=== PATIENT | female | born 1935 | race African-American/Black ===

== ENCOUNTER 2018-03-11 23:14 | Emergency (ER) | payer OTHER, BC ==
--- NOTE | 2018-03-11 23:51 | EDPHY ---
H & P Stated Complaint: ABDOMINAL PAIN X 2 WEEKS LAST TRAMADOL TONIGHT Time Seen by Provider: 03/11/18 23:31 HPI/ROS: Chief Complaint: Abdominal pain HPI: 83 year old woman who had a bladder tumor removed on February 01 in [facility]. She was seen here on the of this month with increasing pain and blood in her urine. At that time she has diagnosed with urinary tract infection. She had an ultrasound which showed asymmetrical bladder wall thickening. She completed a course of antibiotics. She has not followed up with Urology but has no appointment in [place] in 3 days. She says that she has been having daily lower abdominal pain since the surgery. She is taking a single tramadol for this with relief. She also has pain immediately after urination. This is not changed in several weeks. She took her last tramadol tonight. She is presenting tonight because she is concerned that she is going to continue have pain and she will not have medication prior to appointment [place]. She denies any fevers or chills. No urinary frequency. No nausea or vomiting or diarrhea. ROS: 10 point Review of Systems is negative except as noted in the HPI. Social History: No smoking, no alcohol, no recreational drug use Family History: non-contributory Physical Exam: Gen: Awake, Alert, No Distress HEENT: Nose: no rhinorrhea Eyes: PERRLA, EOMI Mouth: Moist mucosa Neck: Supple, no JVD Chest: nontender, lungs clear to auscultation Heart: S1, S2 normal, no murmur Abd: Soft, very mild suprapubic tenderness to palpation, no guarding Back: no CVA tenderness, no midline tenderness Ext: no edema, non-tender Skin: no rash Neuro: CN II-XII intact, Sensation grossly intact, Strength 5/5 in bilateral upper and lower extremities - Personal History Current Tetanus/Diphtheria Vaccine: Yes - Medical/Surgical History Hx Asthma: No Hx Chronic Respiratory Disease: No Hx Diabetes: No Hx Cardiac Disease: No Hx Renal Disease: No Hx Cirrhosis: No Hx Alcoholism: No Hx HIV/AIDS: No Hx Splenectomy or Spleen Trauma: No Other PMH: Hysterectomy. Tonsilectomy r/t sleep apnea. HTN. PCP [facility] In [place]. 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 SHINGLES - Social History Smoking Status: Never smoked Constitutional: Initial Vital Signs Temperature (C) 36.8 C 03/11/18 23:18 Heart Rate 92 03/11/18 23:18 Respiratory Rate 16 03/11/18 23:18 Blood Pressure 141/82 H 03/11/18 23:18 O2 Sat (%) 97 03/11/18 23:18 O2 Delivery Mode Room Air Allergies/Adverse Reactions: No Known Allergies Allergy (Verified 03/03/18 05:48) Home Medications: Medication Instructions Recorded Lisinopril 04/30/16 Cephalexin [Keflex] 500 mg PO Q6H #28 cap 03/03/18 Phenazopyridine HCl [Pyridium] 200 mg PO TID #15 tab 03/03/18 traMADol 50 mg 03/11/18 traMADol [Ultram 50 mg (*)] 50 mg PO Q4 PRN #10 tab 03/11/18 Medical Decision Making ED Course/Re-evaluation: Urinalysis noted. Possible deep infection but also shows positive contamination with 2+ epithelial cells. Her last urine culture was polymicrobial left skin. This has been sent for culture. I am going to hold off on treating at this time until she follows up with Urology. We have had a long discussion about further workup and evaluation for this. She actually has an appointment with a urologist in 2 days in [place]. She would prefer to wait for any further testing in follow-up there. Given that her symptoms have been unchanged for several weeks I think that this is reasonable. Will discharge with a prescription for pain medication with planned follow-up as scheduled. - Data Points Laboratory Results: 03/12/18 00:15 Urine Color YELLOW Urine Appearance MODERATELY TURBID Urine pH 5.0 (5.0-7.5) Ur Specific [place] 1.016 (1.002-1.030) Urine Protein NEGATIVE (NEGATIVE) Urine Ketones TRACE H (NEGATIVE) Urine Blood 2+ H (NEGATIVE) Urine Nitrate NEGATIVE (NEGATIVE) Urine Bilirubin NEGATIVE (NEGATIVE) Urine Urobilinogen NEGATIVE EU EU (0.2-1.0) Ur Leukocyte Esterase 2+ H (NEGATIVE) Urine RBC 50-182 /hpf H /hpf (0-3) Urine WBC 50-182 /hpf H /hpf (0-3) Ur Epithelial Cells 2+ /lpf H /lpf (NONE-1+) Urine Bacteria 1+ /hpf H /hpf (NONE SEEN) Urine Mucus TRACE /lpf /lpf (NONE-1+) Urine Glucose NEGATIVE (NEGATIVE) Departure - Departure Disposition: Home, Routine, Self-Care Clinical Impression: Dysuria, Abdominal pain Condition: Good Instructions: Dysuria (ED), Abdominal Pain (ED) Additional Instructions: Follow up with urology appointment as scheduled in 2 days. Return to the emergency department for increasing pain, fevers or chills, uncontrolled nausea vomiting, or any other concerns. Referrals: NONE *PRIMARY CARE P,. [Primary Care Provider] - As per Instructions Prescriptions: traMADol [Ultram 50 mg (*)] 50 mg PO Q4 PRN #10 tab PRN Reason: Pain, Severe
[2018-03-12 01:01] VITALS: BP 147/100
== END 2018-03-12 01:02 | disposition home or self-care (01) ==
DX: R10.9 Unspecified abdominal pain (principal); R30.0 Dysuria; Z87.440 Personal history of urinary (tract) infections

== ENCOUNTER 2018-03-25 07:37 | Observation (INO) | payer OTHER, BC ==
--- NOTE | 2018-03-25 08:20 | EDPHY ---
H & P Stated Complaint: right sided upper abdominal pain, shoulder pain, neck pain Time Seen by Provider: 03/25/18 08:02 HPI/ROS: Chief Complaint: Right-sided pain HPI: 83-year-old woman who is about 10 days status post trans urethral bladder tumor resection is presenting with intermittent right-sided pain from her neck down to her leg for the last week. Occasionally she has a stiff neck which then goes away. She also has some pain in her right back which is worse with deep breathing. She also has occasional right leg pain. No abdominal pain. Has had some constipation. She has been taking tramadol for postop pain but this is not affecting her right-sided pain. No central chest pain. No shortness of breath. No nausea or vomiting. No falls or injuries. No fevers or chills. No leg swelling. ROS: 10 systems were reviewed and were negative except those elements noted in the HPI. PMH: Bladder tumor Social History: No smoking, no alcohol, no recreational drug use Family History: non-contributory Physical Exam: Gen: Awake, Alert, No Distress HEENT: Nose: no rhinorrhea Eyes: PERRLA, EOMI Mouth: Moist mucosa Neck: Supple, no JVD Chest: nontender, lungs clear to auscultation Heart: S1, S2 normal, no murmur Abd: Soft, non-tender, no guarding Back: no CVA tenderness, no midline tenderness Ext: no edema, non-tender Skin: no rash Neuro: CN II-XII intact, Sensation grossly intact, Strength 5/5 in bilateral upper and lower extremities - Medical/Surgical History Hx Asthma: No Hx Chronic Respiratory Disease: No Hx Diabetes: No Hx Cardiac Disease: No Hx Renal Disease: No Hx Cirrhosis: No Hx Alcoholism: No Hx HIV/AIDS: No Hx Splenectomy or Spleen Trauma: No Other PMH: Hysterectomy. Tonsilectomy r/t sleep apnea. HTN. PCP Sp[facility]er In [place]. 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 SHINGLES - Social History Smoking Status: Never smoked Constitutional: Initial Vital Signs Temperature (C) 36.8 C 03/25/18 07:40 Heart Rate 92 03/25/18 07:40 Respiratory Rate 18 03/25/18 07:40 Blood Pressure 144/87 H 03/25/18 07:40 O2 Sat (%) 95 03/25/18 07:40 O2 Delivery Mode Room Air Allergies/Adverse Reactions: No Known Allergies Allergy (Verified 03/25/18 07:39) Home Medications: Medication Instructions Recorded Lisinopril 04/30/16 Cephalexin [Keflex] 500 mg PO Q6H #28 cap 03/03/18 Phenazopyridine HCl [Pyridium] 200 mg PO TID #15 tab 03/03/18 traMADol 50 mg 03/11/18 traMADol [Ultram 50 mg (*)] 50 mg PO Q4 PRN #10 tab 03/11/18 Medical Decision Making - Diagnostics Imaging Results: Imaging Impressions Chest/Thorax CTA 03/25/18 09:24 Impression: 1. Moderate acute thrombopulmonary embolic disease principally involving the right lower lobe. 2. No evidence of right heart strain. 3. No evidence of metastatic disease to the chest. 4. Moderate left hydronephrosis unchanged. Findings discussed with Emergency Department physician, Pranav Edmonds MD, on 03/25/2018 at 10:00 a.m. - Data Points Laboratory Results: Laboratory Results 03/25/18 08:25 03/25/18 08:25 03/25/18 03/25/18 03/25/18 08:35 08:25 08:25 WBC 9.04 10^3/uL 10^3/uL (3.80-9.50) RBC 4.23 10^6/uL 10^6/uL (4.18-5.33) Hgb 12.4 g/dL L g/dL (12.6-16.3) Hct 37.2 % L % (38.0-47.0) MCV 87.9 fL fL (81.5-99.8) MCH 29.3 pg pg (27.9-34.1) MCHC 33.3 g/dL g/dL (32.4-36.7) RDW 12.6 % % (11.5-15.2) Plt Count 191 10^3/uL 10^3/uL (150-400) MPV 10.4 fL fL (8.7-11.7) Neut % (Auto) 66.3 % % (39.3-74.2) Lymph % (Auto) 15.5 % % (15.0-45.0) Patrick % (Auto) 7.3 % % (4.5-13.0) Eos % (Auto) 10.2 % H % (0.6-7.6) Baso % (Auto) 0.4 % % (0.3-1.7) Nucleat RBC Rel Count 0.0 % % (0.0-0.2) Absolute Neuts (auto) 5.99 10^3/uL 10^3/uL (1.70-6.50) Absolute Lymphs (auto) 1.40 10^3/uL 10^3/uL (1.00-3.00) Absolute Monos (auto) 0.66 10^3/uL 10^3/uL (0.30-0.80) Absolute Eos (auto) 0.92 10^3/uL H 10^3/uL (0.03-0.40) Absolute Basos (auto) 0.04 10^3/uL 10^3/uL (0.02-0.10) Absolute Nucleated RBC 0.00 10^3/uL 10^3/uL (0-0.01) Immature Gran % 0.3 % % (0.0-1.1) Immature Gran # 0.03 10^3/uL 10^3/uL (0.00-0.10) D-Dimer 12.29 ug/mLFEU H ug/mLFEU (0.00-0.50) Sodium 138 mEq/L mEq/L (135-145) Potassium 4.0 mEq/L mEq/L (3.3-5.0) Chloride 105 mEq/L mEq/L (97-110) Carbon Dioxide 24 mEq/l mEq/l (22-31) Anion Gap 9 mEq/L mEq/L (8-16) BUN 14 mg/dL mg/dL (7-23) Creatinine 0.9 mg/dL mg/dL (0.6-1.0) Estimated GFR 60 Glucose 125 mg/dL H mg/dL (70-100) Calcium 9.6 mg/dL mg/dL (8.5-10.4) Urine Color Urine Appearance Urine pH Ur Specific [place] Urine Protein Urine Ketones Urine Blood Urine Nitrate Urine Bilirubin Urine Urobilinogen Ur Leukocyte Esterase Urine RBC Urine WBC Ur Epithelial Cells Urine Bacteria Urine Mucus Urine Glucose 03/25/18 08:02 WBC RBC Hgb Hct MCV MCH MCHC RDW Plt Count MPV Neut % (Auto) Lymph % (Auto) Patrick % (Auto) Eos % (Auto) Baso % (Auto) Nucleat RBC Rel Count Absolute Neuts (auto) Absolute Lymphs (auto) Absolute Monos (auto) Absolute Eos (auto) Absolute Basos (auto) Absolute Nucleated RBC Immature Gran % Immature Gran # D-Dimer Sodium Potassium Chloride Carbon Dioxide Anion Gap BUN Creatinine Estimated GFR Glucose Calcium Urine Color YELLOW Urine Appearance MODERATELY TURBID Urine pH 5.0 (5.0-7.5) Ur Specific [place] 1.012 (1.002-1.030) Urine Protein 2+ H (NEGATIVE) Urine Ketones TRACE H (NEGATIVE) Urine Blood 3+ H (NEGATIVE) Urine Nitrate NEGATIVE (NEGATIVE) Urine Bilirubin NEGATIVE (NEGATIVE) Urine Urobilinogen NEGATIVE EU EU (0.2-1.0) Ur Leukocyte Esterase 3+ H (NEGATIVE) Urine RBC 50-182 /hpf H /hpf (0-3) Urine WBC 50-182 /hpf H /hpf (0-3) Ur Epithelial Cells 3+ /lpf H /lpf (NONE-1+) Urine Bacteria 2+ /hpf H /hpf (NONE SEEN) Urine Mucus 2+ /lpf H /lpf (NONE-1+) Urine Glucose NEGATIVE (NEGATIVE) Departure - Departure Disposition: [facility] Inpatient Acute Clinical Impression: Pulmonary embolism Condition: Fair Referrals: VENITA SO [Other] - As per Instructions
[2018-03-25 08:36] LABS: PLATELET COUNT 191 10^3/uL (150-400)
[2018-03-25] MEDS ORDERED: IOPAMIDOL (ISOVUE 370) 100 ML BTL IV ONE (09:27)
[2018-03-25] MEDS ORDERED: ONDANSETRON 4 MG/2 ML VIAL IVP PRN (10:26)
[2018-03-25] MEDS ORDERED: oxyCODONE IR 5 MG TAB PO PRN (10:26)
[2018-03-25] MEDS ORDERED: ACETAMINOPHEN 325 MG TAB PO PRN (10:26)
[2018-03-25] MEDS ORDERED: ONDANSETRON DISINTEGRATING 4 MG TAB PO PRN (10:26)
--- NOTE | 2018-03-25 11:06 | ASMTCMCOM ---
CM Note CM Note Notes: Pt presented to the ED through triage for right sided abdominal pain and right sided back pain that is worse w/ deep breathing. Chest/Thorax CTA shows a PE; admission recommended. Pt normally lives in [facility] but spends her jacobs in [place] w/her daughter. Pt had a bladder tumor resection on 02/01/18 in [place] and presented to the ED w/hematuria on 03/03 and for abdominal pain on 03/11/18; pt reportedly didn't follow up w/her urologist in [place] or w/Dr Finnegan here in [place] but had an appt w/a urologist in [place] on 03/13/18; pt made it to that appt and also had a transurethral bladder tumor resection during that visit. Pt will be receiving ongoing follow-up w/urology at [facility] from here on out. Exact DC needs unknown/TBD. Anticipate pt dc home w/family once medically stabilized. Pt may need assistance with coordinating follow-up care, appts, and establishing a local PCP if she plans on staying in [place] much longer. CM to follow. Date Signed: 03/25/2018 11:05 AM Electronically Signed By:Susan Richardson RN
--- NOTE | 2018-03-25 12:46 | PDGENHP ---
History and Physical - Chief Complaint Acute neck pain - History of Present Illness Primary care provider Dr. Linder in [facility] Primary oncologist: Niya HPI: 83-year-old female with acute neck pain located in the right lateral aspect, characterized as sharp, radiating to the right leg, with associated pain in the back exacerbated w/ deep inspiration, onset of symptoms 3 days prior. She has not noted any recent reduction in exercise tolerance or chest pain w/ exertion. She reports associated post-micturation pain in the suprapubic area, but no overt dysuria, no visible hematuria. She utilizes tramadol to alleviate this suprapubic discomfort, prescribed after her most recent bladder surgery. She denies any melena or hematochezia. She has recently traveled from [place] to [facility]. She is currently considering whether she will undergo radiation and chemotherapy for her bladder cancer. History Information - Allergies/Home Medication List Allergies/Adverse Reactions: No Known Allergies Allergy (Verified 03/25/18 07:39) Home Medications: Lisinopril [Zestril] 30 mg PO DAILY 04/30/16 [Last Taken 03/24/18] Herbals/Supplements -Info Only 1 ea PO DAILY 03/25/18 [Last Taken Unknown] traMADol [Ultram 50 mg (*)] 50 mg PO Q6H PRN 03/25/18 [Last Taken Unknown] I have personally reviewed and updated: family history, medical history, social history, surgical history - Past Medical History Additional medical history: Localized bladder cancer. Hypertension. Obstructive sleep apnea on CPAP. Shingles. Provoked pulmonary embolism 21 years ago status post 1 year of Coumadin - Surgical History Additional surgical history: 2 bladder surgeries, most recently 03/15/2018 with bladder tumor resection. Tonsillectomy. Hysterectomy - Family History Additional family history: Mother with cancer and venous thromboembolism - Social History Smoking Status: Never smoked Alcohol Use: None Drug Use: None Additional social history: Originally from [facility] recently relocated to [place] to live with her daughter Review of Systems Review of Systems: ROS: 10pt was reviewed & negative except for what was stated in HPI & below Respiratory: Reports: other (Dyspnea) Genitourinary: Reports: pain (Suprapubic weight) Muscolosketal: Reports: neck pain, other (Back pain, leg pain) Physical Exam Physical Exam: Temp Pulse Resp BP Pulse Ox 36.8 C 73 16 170/104 H 98 03/25/18 10:55 03/25/18 10:55 03/25/18 10:55 03/25/18 10:55 03/25/18 10:55 Constitutional: no apparent distress, appears nourished, not in pain Eyes: PERRL, anicteric sclera, EOMI Ears, Nose, Mouth, Throat: moist mucous membranes, hearing normal, ears appear normal, no oral mucosal ulcers Cardiovascular: other (Couplets, occurring regularly), No systolic murmur, No tachycardia, No edema Respiratory: no respiratory distress, no rales or rhonchi, clear to auscultation Gastrointestinal: normoactive bowel sounds, soft, non-tender abdomen, no palpable masses Genitourinary: no bladder fullness, other (Mild suprapubic tenderness,) Skin: warm, No rash Musculoskeletal: normal joint ROM, other (No tenderness to palpation over right sub AC joint) Neurologic: sensation intact bilaterally, No weakness Psychiatric: interacting appropriately, not anxious, not encephalopathic, thought process linear Lab Data & Imaging Review 03/25/18 08:25 03/25/18 08:25 WBC 9.04 10^3/uL (3.80-9.50) 03/25/18 08:25 RBC 4.23 10^6/uL (4.18-5.33) 03/25/18 08:25 Hgb 12.4 g/dL (12.6-16.3) L 03/25/18 08:25 Hct 37.2 % (38.0-47.0) L 03/25/18 08:25 MCV 87.9 fL (81.5-99.8) 03/25/18 08:25 MCH 29.3 pg (27.9-34.1) 03/25/18 08:25 MCHC 33.3 g/dL (32.4-36.7) 03/25/18 08:25 RDW 12.6 % (11.5-15.2) 03/25/18 08:25 Plt Count 191 10^3/uL (150-400) 03/25/18 08:25 MPV 10.4 fL (8.7-11.7) 03/25/18 08:25 Neut % (Auto) 66.3 % (39.3-74.2) 03/25/18 08:25 Lymph % (Auto) 15.5 % (15.0-45.0) 03/25/18 08:25 [place] % (Auto) 7.3 % (4.5-13.0) 03/25/18 08:25 Eos % (Auto) 10.2 % (0.6-7.6) H 03/25/18 08:25 Baso % (Auto) 0.4 % (0.3-1.7) 03/25/18 08:25 Nucleat RBC Rel Count 0.0 % (0.0-0.2) 03/25/18 08:25 Absolute Neuts (auto) 5.99 10^3/uL (1.70-6.50) 03/25/18 08:25 Absolute Lymphs (auto) 1.40 10^3/uL (1.00-3.00) 03/25/18 08:25 Absolute Monos (auto) 0.66 10^3/uL (0.30-0.80) 03/25/18 08:25 Absolute Eos (auto) 0.92 10^3/uL (0.03-0.40) H 03/25/18 08:25 Absolute Basos (auto) 0.04 10^3/uL (0.02-0.10) 03/25/18 08:25 Absolute Nucleated RBC 0.00 10^3/uL (0-0.01) 03/25/18 08:25 Immature Gran % 0.3 % (0.0-1.1) 03/25/18 08:25 Immature Gran # 0.03 10^3/uL (0.00-0.10) 03/25/18 08:25 D-Dimer 12.29 ug/mLFEU (0.00-0.50) H 03/25/18 08:35 Sodium 138 mEq/L (135-145) 03/25/18 08:25 Potassium 4.0 mEq/L (3.3-5.0) 03/25/18 08:25 Chloride 105 mEq/L (97-110) 03/25/18 08:25 Carbon Dioxide 24 mEq/l (22-31) 03/25/18 08:25 Anion Gap 9 mEq/L (8-16) 03/25/18 08:25 BUN 14 mg/dL (7-23) 03/25/18 08:25 Creatinine 0.9 mg/dL (0.6-1.0) 03/25/18 08:25 Estimated GFR 60 03/25/18 08:25 Glucose 125 mg/dL (70-100) H 03/25/18 08:25 Calcium 9.6 mg/dL (8.5-10.4) 03/25/18 08:25 Urine Color YELLOW 03/25/18 08: Urine Appearance MODERATELY TURBID 03/25/18 08: Urine pH 5.0 (5.0-7.5) 03/25/18 08:02 Ur Specific [place] 1.012 (1.002-1.030) 03/25/18 08:02 Urine Protein 2+ (NEGATIVE) H 03/25/18 08: Urine Ketones TRACE (NEGATIVE) H 03/25/18 08:02 Urine Blood 3+ (NEGATIVE) H 03/25/18 08: Urine Nitrate NEGATIVE (NEGATIVE) 03/25/18 08: Urine Bilirubin NEGATIVE (NEGATIVE) 03/25/18 08: Urine Urobilinogen NEGATIVE EU (0.2-1.0) 03/25/18 08:02 Ur Leukocyte Esterase 3+ (NEGATIVE) H 03/25/18 08:02 Urine RBC 50-182 /hpf (0-3) H 03/25/18 08:02 Urine WBC 50-182 /hpf (0-3) H 03/25/18 08:02 Ur Epithelial Cells 3+ /lpf (NONE-1+) H 03/25/18 08:02 Urine Bacteria 2+ /hpf (NONE SEEN) H 03/25/18 08:02 Urine Mucus 2+ /lpf (NONE-1+) H 03/25/18 08:02 Urine Glucose NEGATIVE (NEGATIVE) 03/25/18 08:02 Visualized and Interpreted imaging results: Yes Interpretation: CT of the chest demonstrating no pneumonia, right-sided upper lobe pulmonary embolism Visualized and Interpreted EKG results: Yes EKG Interpretation: Positive for: other (Ventricular bigeminy couplets, appears to be sinus mechanism) Assessment & Plan Assessment: 83-year-old female presenting with acute pulmonary embolism Plan: 1. Pulmonary embolism. Present on admission, acute, new problem this provider, further workup indicated. Pulmonary embolism severity index score of 112, conferring class 4 high risk for 30 day mortality, warranting observation overnight while we initiate systemic anticoagulation and ensure that she does not developed significant hematuria given her underlying history of bladder cancer with recent tumor removal and microscopic hematuria on urinalysis -discussed systemic anticoagulation options with the patient and her daughter, discussed risks and benefits, she has elected for Pradaxa 150 mg twice daily at this time, initiate now -will have case management run a recio check for Pradaxa and her [employer] insurance and if the patient is unable to afford, will utilize an alternative agent -check lower extremity ultrasounds to ensure she does not have large volume clot given that she is anticipating airline travel in the next 7 days -discussed pain medication options, p.r.n. Tylenol, tramadol, patient would like to avoid oxycodone if possible -given her ventricular bigeminy on EKG, monitor on telemetry overnight to ensure no atrial arrhythmia 2. Bladder cancer. Localized, status post tumor resection on 03/15 -order outside records from [facility] -patient intends to consider radiation and chemotherapy through [facility] -this practice will also manage the patient's blood thinners for above 3. Hypertension. Chronic, dose lisinopril now Diet. Regular Prophylaxis. High risk patient, Pradaxa Code. Full Disposition. Anticipated discharge is 03/26, pending stabilization of above. Discussed w/ Lea Blanca, hospitalist provider, she has signed patient out to me for evaluation.
[2018-03-25] MEDS: LISINOPRIL 20 MG TAB PO SCH (13:20)
[2018-03-25] MEDS: DABIGATRAN ETEXILATE MESYL 150 MG CAP PO SCH ×2 (13:21→20:11)
--- NOTE | 2018-03-25 14:30 | ASMTCMCOM ---
CM Note CM Note Notes: Met with pt re; dc poc. Pt is visiting dtr who lives in [place], pt resides in [place]. Per MD, will need anticoagulant. CM checked with pt's pharmacy and for Pradaxa her copay will be $28/month, pt is ok with this recio. Anticipate pt will dc to dtr's home when medically stable. CM available for any changes. DC Plan: Independent Date Signed: 03/25/2018 02:30 PM Electronically Signed By:Yani Maya RN
[2018-03-25] MEDS: traMADol 50 MG TAB PO PRN (19:32)
[2018-03-26 06:01] LABS: PLATELET COUNT 181 10^3/uL (150-400)
[2018-03-26] MEDS: DABIGATRAN ETEXILATE MESYL 150 MG CAP PO SCH (08:48)
[2018-03-26] MEDS: LISINOPRIL 20 MG TAB PO SCH (08:48)
[2018-03-26] MEDS ORDERED: Herbals/Supplements -Info Only PO SCH (09:00)
[2018-03-26] MEDS: traMADol 50 MG TAB PO PRN (09:50)
[2018-03-26 12:50] VITALS: BP 161/96
--- NOTE | 2018-03-26 16:14 | PDDCSUM ---
Discharge Summary Discharge Summary: DISCHARGE SUMMARY FOLLOW-UP ITEMS: 1. Duration of systemic anticoagulation to be determined by patient's outpatient oncology provider DATE OF ADMISSION: 03/25/2018 DATE OF DISCHARGE: 03/26/2018 DISCHARGE DIAGNOSES: 1. Acute pulmonary embolism present on admission 2. Bladder cancer 3. Chronic hypertension 4. A right lower extremity DVT present on admission CONSULTATIONS: None PROCEDURES / IMAGING: CT angiogram demonstrating right-sided pulmonary embolism, moderate volume Lower extremity ultrasound demonstrating small right peroneal DVT CHIEF COMPLAINT: Acute right neck pain SUBJECTIVE: Patient has some ongoing bladder discomfort but otherwise no neck pain PHYSICAL EXAM ON DISCHARGE: Systolic blood pressure 140, heart rate 90, if overnight, satting well on room air, alert awake oriented x3, no apparent distress, no resp distress, breathing comfortably on room air LABS ON DISCHARGE: Creatinine 0.9, hemoglobin 11.3 HOSPITAL COURSE BY PROBLEM: The patient presented with acute right-sided neck pain and elevated D-dimer, secondary to a right-sided pulmonary embolism was subsequently referred pain. The pulmonary embolism was secondary to right lower extremity DVT, which was occurring in the setting of active malignancy as well as recent airline travel. In addition, the patient also has a history of provoked DVT 21 years ago. 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 The patient chose Pradaxa as her anticoagulation of choice given its ability to be reversed if she experiences a life-threatening bleed. She is at high risk for significant bleeding given her recent bladder cancer surgery and ongoing microscopic hematuria. She required observation in the hospital after initiation of blood thinners given her pulmonary embolism severity index score of 112, conferring her as class 4 high risk for 30 day mortality. We initiated Pradaxa, monitored for her for bleeding, and after she demonstrated no evidence of active bleeding, she was safely discharged with an outpatient prescription and recommendations to follow up with her Oncology provider. The referred pain caused by her pulmonary embolism had subsided by discharge, and she was managing her chronic bladder pain from her malignancy with tramadol and Tylenol. The patient does not want to initiate other opiates for her pain management at this time, but she is open to considering a fentanyl patch in the future to provide her with baseline pain management. I recommended that she continue this conversation with her primary oncology provider moving forward. The patient did not want to have the fentanyl patch prescribed at this specific time. DISCHARGE MEDICATIONS: Please see official discharge medication reconciliation sheet in chart , Pradaxa 150 twice daily, continue other home medications. I educated the patient and her daughter not to take nonsteroidal anti-inflammatory medications. DISCHARGE INSTRUCTIONS: Please follow up with the outpatient oncology provider as scheduled.
--- NOTE | 2018-03-27 01:44 | CPEKG ---
Test Reason : OPEN Blood Pressure : / mmHG Vent. Rate : 077 BPM Atrial Rate : 039 BPM P-R Int : 153 ms QRS Dur : 080 ms QT Int : 402 ms P-R-T Axes : 035 010 047 degrees QTc Int : 455 ms Sinus rhythm Supraventricular bigeminy Confirmed by Pranav Edmonds ([id number]) on 03/27/2018 1:43:58 AM Referred By: Confirmed By:Pranav Edmonds
== END 2018-03-26 14:02 | disposition home or self-care (01) ==
LOC: F3E 10:45
PROVIDERS: ADMIT Internal Medicine; ATTEND Internal Medicine
DX: I26.99 Other pulmonary embolism without acute cor pulmonale (principal); I82.401 Acute embolism and thrombosis of unspecified deep veins of right lower extremity; C67.9 Malignant neoplasm of bladder, unspecified; I10 Essential (primary) hypertension; Z86.718 Personal history of other venous thrombosis and embolism; Z98.890 Other specified postprocedural states
CPT/HCPCS: 71275; 93005; 93970; 99285; G0378; Q9967

== ENCOUNTER 2018-04-13 15:56 | Inpatient (IN) | payer OTHER, BC ==
--- NOTE | 2018-04-13 16:23 | EDPHY ---
H & P Stated Complaint: L sided abd pain, dizzy since this morning Time Seen by Provider: 04/13/18 16:16 HPI/ROS: CHIEF COMPLAINT: Left lower quadrant pain, presyncope HISTORY OF PRESENT ILLNESS: The patient presents to the ED with a 1 day history of left lower quadrant pain. The patient does have a history of diverticulosis but not diverticulitis. She also has a history of bladder cancer. The patient was recently diagnosed with a blood clot and is currently on Xarelto. The patient denies any vomiting or diarrhea. She does report some constipation. The patient denies any acute respiratory complaints. The patient denies dysuria. The patient denies hematuria. The patient is also had some mild symptoms of presyncope. She denies any melena or hematemesis. She denies any current chest pain or shortness of breath. REVIEW OF SYSTEMS: A comprehensive 10 point review of systems is otherwise negative aside from elements mentioned in the history of present illness. Source: Patient Exam Limitations: No limitations - Personal History Current Tetanus/Diphtheria Vaccine: Yes Current Tetanus Diphtheria and Acellular Pertussis (TDAP): Yes Tetanus Vaccine Date: 2012 - Medical/Surgical History Hx Asthma: No Hx Chronic Respiratory Disease: No Hx Diabetes: No Hx Cardiac Disease: No Hx Renal Disease: No Hx Cirrhosis: No Hx Alcoholism: No Hx HIV/AIDS: No Hx Splenectomy or Spleen Trauma: No Other PMH: Hysterectomy. Tonsilectomy r/t sleep apnea. HTN. PCP [facility] In [place]. 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 PE. SHINGLES - Social History Smoking Status: Never smoked - Physical Exam Exam: General Appearance: Alert, no distress Eyes: Pupils equal and round no pallor or injection ENT, Mouth: Mucous membranes moist Respiratory: There are no retractions, lungs are clear to auscultation Cardiovascular: Regular rate and rhythm Gastrointestinal: Tenderness to palpation left lower quadrant Neurological: A&O, normal motor function, normal sensory exam, normal cranial nerves Skin: Warm and dry, no rashes Musculoskeletal: Neck is supple nontender Extremities: symmetrical, full range of motion Psychiatric: Patient is oriented X 3, there is no agitation Constitutional: Initial Vital Signs Temperature (C) 36.9 C 04/13/18 16:04 Heart Rate 84 04/13/18 16:04 Respiratory Rate 16 04/13/18 16:04 Blood Pressure 194/94 H 04/13/18 16:04 O2 Sat (%) 94 04/13/18 16:04 O2 Delivery Mode Room Air Allergies/Adverse Reactions: No Known Allergies Allergy (Verified 03/25/18 07:39) Home Medications: Medication Instructions Recorded Lisinopril [Zestril] 30 mg PO DAILY 04/30/16 Herbals/Supplements -Info Only 1 ea PO DAILY 03/25/18 traMADol [Ultram 50 mg (*)] 50 mg PO Q6H PRN 03/25/18 Dabigatran Etexilate Mesyl 150 mg PO BID #60 cap 03/26/18 [Pradaxa 150 MG (*)] Medical Decision Making - Diagnostics EKG Interpretation: EKG: Complete interpretation has been separately recorded in the [facility] archive. Summary impression: Sinus rhythm, rate 79, single PAC Imaging Results: Imaging Impressions Abdomen CT 04/13/18 17:21 Impression: 1. Moderate left-sided hydronephrosis and hydroureter, with obstruction caused at the UVJ level by a bladder mass, consistent with the patient's history of bladder cancer. The acute perinephric stranding is consistent with either acute worsening of the hydronephrosis or significant inflammation caused to the kidney by the hydronephrosis. 2. Infrarenal abdominal aortic aneurysm at 4.7 x 5.4 cm. 3. No significant retroperitoneal or inguinal adenopathy. 4. Moderate amount of stool impaction at the cecum and ascending colon. Findings and recommendations discussed with Rafita Leung M.D., at 6:00 p.m., on April 13, 2018. Final report concurs with initial preliminary interpretation. ED Course/Re-evaluation: Patient presents the ED for evaluation of left lower quadrant pain. The patient does have a history of bladder cancer. Given her tenderness a CT scan of the abdomen pelvis was ordered which demonstrates hydronephrosis and perinephric stranding consistent with pyelonephritis. The patient had an IV established. She received blood cultures x2. She is started on IV ceftriaxone. The patient will need to be admitted to the hospital in a setting of pyelonephritis secondary to an obstructive uropathy. Consultation is made with Dr. Kuldip Heredia from the hospitalist service. I have also requested consultation from Urology. Patient has no evidence of septic physiology in the emergency department. She has no evidence of acute renal failure. Differential Diagnosis: Differential diagnosis considered includes diverticulosis, diverticulitis, ureterolithiasis, pyelonephritis, constipation, obstipation - Data Points Laboratory Results: Laboratory Results 04/13/18 16:38 04/13/18 16:38 04/13/18 04/13/18 04/13/18 17:53 16:38 16:38 WBC 10.06 10^3/uL H 10^3/uL (3.80-9.50) RBC 4.60 10^6/uL 10^6/uL (4.18-5.33) Hgb 13.0 g/dL g/dL (12.6-16.3) Hct 39.8 % % (38.0-47.0) MCV 86.5 fL fL (81.5-99.8) MCH 28.3 pg pg (27.9-34.1) MCHC 32.7 g/dL g/dL (32.4-36.7) RDW 12.9 % % (11.5-15.2) Plt Count 259 10^3/uL 10^3/uL (150-400) MPV 10.8 fL fL (8.7-11.7) Neut % (Auto) 87.7 % H % (39.3-74.2) Lymph % (Auto) 7.3 % L % (15.0-45.0) [place] % (Auto) 3.7 % L % (4.5-13.0) Eos % (Auto) 0.6 % % (0.6-7.6) Baso % (Auto) 0.3 % % (0.3-1.7) Nucleat RBC Rel Count 0.0 % % (0.0-0.2) Absolute Neuts (auto) 8.83 10^3/uL H 10^3/uL (1.70-6.50) Absolute Lymphs (auto) 0.73 10^3/uL L 10^3/uL (1.00-3.00) Absolute Monos (auto) 0.37 10^3/uL 10^3/uL (0.30-0.80) Absolute Eos (auto) 0.06 10^3/uL 10^3/uL (0.03-0.40) Absolute Basos (auto) 0.03 10^3/uL 10^3/uL (0.02-0.10) Absolute Nucleated RBC 0.00 10^3/uL 10^3/uL (0-0.01) Immature Gran % 0.4 % % (0.0-1.1) Immature Gran # 0.04 10^3/uL 10^3/uL (0.00-0.10) Sodium 136 mEq/L mEq/L (135-145) Potassium 4.5 mEq/L mEq/L (3.3-5.0) Chloride 101 mEq/L mEq/L (97-110) Carbon Dioxide 19 mEq/l L mEq/l (22-31) Anion Gap 16 mEq/L mEq/L (8-16) BUN 12 mg/dL mg/dL (7-23) Creatinine 1.0 mg/dL mg/dL (0.6-1.0) Estimated GFR 53 Glucose 111 mg/dL H mg/dL (70-100) Calcium 10.1 mg/dL mg/dL (8.5-10.4) Urine Color YELLOW Urine Appearance HAZY Urine pH 5.0 (5.0-7.5) Ur Specific [place] 1.023 (1.002-1.030) Urine Protein 2+ H (NEGATIVE) Urine Ketones 2+ H (NEGATIVE) Urine Blood 3+ H (NEGATIVE) Urine Nitrate NEGATIVE (NEGATIVE) Urine Bilirubin NEGATIVE (NEGATIVE) Urine Urobilinogen 2.0 EU H EU (0.2-1.0) Ur Leukocyte Esterase TRACE H (NEGATIVE) Urine RBC 50-182 /hpf H /hpf (0-3) Urine WBC 50-182 /hpf H /hpf (0-3) Ur Epithelial Cells TRACE /lpf /lpf (NONE-1+) Urine Bacteria TRACE /hpf H /hpf (NONE SEEN) Urine Mucus TRACE /lpf /lpf (NONE-1+) Urine Glucose NEGATIVE (NEGATIVE) Departure - Departure Disposition: [facility] Inpatient Acute Clinical Impression: Pyelonephritis, Obstructive uropathy Condition: Fair Referrals: NONE *PRIMARY CARE P,. [Primary Care Provider] - As per Instructions
[2018-04-13 16:56] LABS: PLATELET COUNT 259 10^3/uL (150-400)
--- NOTE | 2018-04-13 17:21 | CPEKG ---
Test Reason : OPEN Blood Pressure : / mmHG Vent. Rate : 079 BPM Atrial Rate : 080 BPM P-R Int : 149 ms QRS Dur : 081 ms QT Int : 384 ms P-R-T Axes : 049 013 035 degrees QTc Int : 441 ms Sinus rhythm Atrial premature complexes Confirmed by Rafita Leung ([id number]) on 04/13/2018 5:21:47 PM Referred By: Confirmed By:Rafita Leung
[2018-04-13] MEDS ORDERED: IOPAMIDOL (ISOVUE-300) 100 ML BTL ONE (17:25)
[2018-04-13] MEDS ORDERED: ONDANSETRON 4 MG/2 ML VIAL IVP ONE (20:11)
[2018-04-13] MEDS ORDERED: ONDANSETRON DISINTEGRATING 4 MG TAB PO PRN (20:54)
[2018-04-13] MEDS ORDERED: ONDANSETRON 4 MG/2 ML VIAL IVP PRN (20:54)
[2018-04-13] MEDS ORDERED: ACETAMINOPHEN 325 MG TAB PO PRN (20:54)
[2018-04-13] MEDS ORDERED: PROMETHAZINE HCL 25 MG/ML INJ IVP PRN (20:54)
[2018-04-13] MEDS ORDERED: HYDROCODONE/APAP 5/325 TAB PO PRN (20:54)
[2018-04-13] MEDS ORDERED: traMADol 50 MG TAB PO PRN (20:55)
[2018-04-13] MEDS ORDERED: hydrALAZINE 20 MG/ML VIAL IVP PRN (20:56)
[2018-04-13] MEDS ORDERED: ENALAPRILAT DIHYDRATE 1.25 MG/ML VIAL IVP PRN (21:03)
[2018-04-13] MEDS: NS 1,000 ML IV SCH (21:21)
--- NOTE | 2018-04-13 22:00 | GHP ---
DATE OF ADMISSION: 04/13/2018 CHIEF COMPLAINT: Abdominal pain. HISTORY: This is an 83-year-old female who has a past medical history of bladder cancer and fairly r ecent diagnosis of PE, currently on Xarelto, who presents with severe left lower abdominal pain with associated constipation and lightheadedness. She denies any fevers or chills. She denies any cough or shortness of breath. She does obtain the majority of her care for her bladder cancer at the [facility], where she sees a urologist and an oncologist. She states she had a CT scan there 2 days ago at which time she was told that she may need an intervention for something going on with h er kidney. PAST MEDICAL HISTORY: Includes: 1. Bladder cancer. 2. Recent diagnosis of PE. 3. Hypertension. 4. Obstructive sleep apnea. PAST SURGICAL HISTORY: Includes: 1. Bladder surgery x2 with bladder tumor resection, most recently 03/15/2018. 2. Tonsillectomy. 3. Hysterectomy. FAMILY HISTORY: Mother with history of cancer and VTE. SOCIAL HISTORY: Patient is a nonsmoker, nondrinker, nondrug user. She is accompanied by her bertha philippe. REVIEW OF SYSTEMS: 10-point review of systems obtained and negative except as per HPI. HOME MEDICATIONS: Include: 1. Tramadol. 2. Lisinopril. 3. Pradaxa. ALLERGIES: No known drug allergies. PHYSICAL EXAM: VITAL SIGNS: BP 179/96, heart rate 80, respiratory rate 18, O2 sats 95% on room air, temperature is 36.9. GENERAL APPEARANCE: This is an female. She is awake and daniela rt. She is in mild distress. EYES: Anicteric. HENT: Oropharynx clear. CARDIOVASCULAR: Regular rate and rhythm, no MRG. PULMONARY: CTA bilaterally. Normal work of breathing. ABDOMEN: Soft, di ffuse tenderness to palpation, decreased bowel sounds. EXTREMITIES: No clubbing, cyanosis, or edema . SKIN: Warm, dry, well perfused. NEURO/PSYCHIATRIC: Oriented and appropriate, pleasant. CLINICAL DATA: Labs reviewed notable for a white blood cell count of 10. Chemistries notable for gl ucose of 111. UA significant for 50-180 red blood cells, 50-180 white blood cells, 2+ protein, 2+ ke tones, 3+ blood, trace bacteria. IMAGING: Abdominal CT, personally reviewed and interpreted, shows moderate left-sided hydronephrosis and hydroureter with obstruction at the UVJ by bladder mass and associated acute perinephric strandi ng. There is an infrarenal abdominal aortic aneurysm at 4.7 x 5.4, which was not previously noted on imaging at [facility]. EKG, personally reviewed and interpreted, shows sinus rhythm with atrial premature complexes. No isc hemic change. ASSESSMENT AND PLAN: This is an 83-year-old female with a history of bladder cancer and recent PE, p resenting with abdominal pain, found to have moderate hydroureteronephrosis secondary to bladder tumo r. 1. Hydroureteronephrosis secondary to extrinsic compression by bladder mass. [facility] and Dr. Leung discussed with Urology in the emergency department. Plan is for a p ercutaneous nephrostomy tube to be performed as soon as felt to be safe, given recent intake of [place]. Pradaxa will be held. 2. Pyelonephritis in the setting of obstructive uropathy from above. She does have notable perineph dionicio stranding on abdominal CT. Urine cultures are currently pending and also will need to obtain cul tures once nephrostomy tube is placed. Started on ceftriaxone, which will be continued for the time being. 3. Bladder cancer. She has her care typically at the [facility]. Dr. Franco of Urology has been consulted as has Dr. Lara of Oncology. Both of these services will see the patient in co nsultation in the morning. 4. Abdominal aortic aneurysm noted to be 4.7 x 5.4 cm. There is no old imaging available at [facility] to compare. We will need to look for imaging from the [facility] to de termine if this is growing at a more rapid rate. 5. PE. This was diagnosed earlier this month. She has been on Pradaxa as an outpatient, which will be held given need for percutaneous nephrostomy placement. We will start Lovenox in the morning, gi kvng that it may be a couple of days before she is able to have this procedure performed. 6. Hypertension. This is poorly controlled. At home, she is on lisinopril. We will add p.r.n. cheryl lapril IV overnight. 7. Inpatient status. Suspect patient will need greater than 48-hour stay for evaluation and managem ent of above. 8. Patient is new to my care. Old records reviewed, summarized as per HPI and past medical history. Care plan reviewed with ER physician including plans for urology consultation. Further history obt ained from patient's daughter present at bedside. /[id number]/MODL
[2018-04-13] MEDS: ENOXAPARIN 60 MG/0.6 ML SYR SC SCH (23:07)
[2018-04-13] MEDS: oxyCODONE IR 5 MG TAB PO PRN (23:21)
[2018-04-14] MEDS: oxyCODONE IR 5 MG TAB PO PRN (03:22)
[2018-04-14 04:53] LABS: PLATELET COUNT 239 10^3/uL (150-400)
[2018-04-14] MEDS: NS 1,000 ML IV SCH (06:36)
--- NOTE | 2018-04-14 08:02 | SOAPPROG ---
<Refugio Blue - Last Filed: 04/14/18 07:56> SOAP Progress Note Assessment/Plan: Assessment: AAA (abdominal aortic aneurysm) Acute not new and assessment not priority at this time Bladder cancer Acute followed by [facility] and if pt desires follow up there, if not need consider bx and rx planning Hydronephrosis Acute related to Bladder cancer and hold PCN at this time til plans for bladder outlined Obstructive uropathy Acute related to Bladder cancer and hold PCN at this time til plans for bladder outlined Pyelonephritis Acute not sure this is the case with culture pending, creat normal and bladder lesion Pulmonary embolism Acute most pressing acute issue at present time Constipation Acute Hospitalist to address Plan: will see today 04/14/18 07:58 Objective: Vital Signs Temp Pulse Resp BP Pulse Ox 36.8 C 82 16 163/101 H 99 04/14/18 04:49 04/14/18 06:29 04/14/18 04:49 04/14/18 06:29 04/14/18 04:49 Laboratory Results 04/14/18 04:22 04/14/18 04:22 04/13/18 04/14/18 04/15/18 05:59 05:59 05:59 Intake Total 250 Output Total 225 Balance 25 Physical Exam - Physical Exam General Appearance: other (will visit later today) ICD10 Worksheet Patient Problems: Problems Problem Status Onset AAA (abdominal aortic aneurysm) Acute Bladder cancer Acute Hydronephrosis Acute Obstructive uropathy Acute Pyelonephritis Acute Pulmonary embolism Acute - ICD10 Problem Qualifiers (1) Bladder cancer QualifierTitle: Bladder location: overlapping sites Qualified Code(s): C67.8 - Malignant neoplasm of overlapping sites of bladder (2) Hydronephrosis QualifierTitle: Hydronephrosis type: unspecified Qualified Code(s): N13.30 - Unspecified hydronephrosis (3) AAA (abdominal aortic aneurysm) <Fidelia Mao - Last Filed: 04/14/18 09:59> SOAP Progress Note Assessment/Plan: Assessment: As above Plan: Discussed with patient options for us to take over care and bx bladder and then address hydroneprhosis afterwards or address acute symptoms and have her keep Tuesday's appoint at [place]. She elects to keep [facility] appointment. Recommend bowel regiment for constipation which we suspect is contributing to her current symptoms. Will hold off on PCNL which may cause bleeding given anticoagulation. . 04/14/18 09:56 Subjective: Diffuse bladder pain that wraps up her left abdomen. No left flank pain. Feels different than usual dysuria symptoms. Objective: Vital Signs Temp Pulse Resp BP Pulse Ox 36.8 C 88 16 179/99 H 93 04/14/18 08:15 04/14/18 08:15 04/14/18 08:15 04/14/18 08:53 04/14/18 08:15 Laboratory Results 04/14/18 04:22 04/14/18 04:22 04/13/18 04/14/18 04/15/18 05:59 05:59 05:59 Intake Total 250 Output Total 225 Balance 25 Physical Exam - Physical Exam General Appearance: alert, mild distress Respiratory: lungs clear Cardiac/Chest: regular rate, rhythm Abdomen: soft, other (no left flank pain), No distended Skin: normal color, warm/dry
[2018-04-14] MEDS: LISINOPRIL 20 MG TAB PO SCH (08:48)
[2018-04-14] MEDS ORDERED: BISACODYL 10 MG SUPP PR PRN (11:35)
[2018-04-14] MEDS ORDERED: MAGNESIUM CITRATE 300 ML BOTTLE PO ONE (11:35)
[2018-04-14] MEDS ORDERED: MAGNESIUM HYDROXIDE 30 ML UDCUP PO PRN (11:35)
[2018-04-14] MEDS ORDERED: LACTULOSE 20 GM/30 ML UDCUP PO PRN (11:35)
[2018-04-14] MEDS ORDERED: POLYETHYLENE GLYCOL 3350 17 GM PKT PO PRN (11:35)
[2018-04-14] MEDS: HYDROmorphone HCL 0.5 MG/0.5 ML SYR IVP PRN ×2 (11:56→15:50)
[2018-04-14] MEDS: ENOXAPARIN 60 MG/0.6 ML SYR SC SCH ×2 (12:00→20:47)
--- NOTE | 2018-04-14 12:08 | PDMN ---
Medical Necessity Medical necessity: Pt meets IP criteria per MD & MCG M-300; est los >2 mn for eval/tx of hydroureteronephrosis secondary to bladder mass & pyelonephritis w/ hypertension (BP 217/105), severe 8/10 abdominal pain, constipation & lightheadedness; cxs pending; requiring IR/Urology/Oncology consults, percutaneous nephrostomy tube placement, IV abx, IVFs, IV Enalapril, pain management, bowel regimen & therapies; comorbid advanced age, AAA, bladder cancer, PE on AC, HTN; per H&P & order 04/13/18
--- NOTE | 2018-04-14 15:09 | GCON ---
DATE OF CONSULTATION: 04/14/2018 REASON FOR CONSULT: Left hydronephrosis in the setting of bladder mass. HISTORY OF PRESENT ILLNESS: This is a pleasant, 83-year-old female, who presented to the emergency r oom with new suprapubic discomfort that she felt radiated up her left front abdomen. She is denying left flank pain. She is having significant issues with constipation. She is being seen and managed at the [facility] for her bladder cancer where she has a urologist and an oncologist on h er team there. She has an upcoming appointment with them on Tuesday to discuss planning for surgery. She was recently diagnosed with a PE and is currently on Xarelto. PAST MEDICAL HISTORY: Bladder cancer, PE, hypertension, sleep apnea surgery, bladder surgery resecti ons, most currently on 03/15, tonsillectomy, hysterectomy. FAMILY HISTORY: Mother with cancer. SOCIAL HISTORY: Nonsmoker, nondrinker, nondrug user. Daughters is in the room. REVIEW OF SYSTEMS: A 10-point review of systems is negative except as mentioned in HPI. HOME MEDICATIONS: Tramadol, lisinopril, Pradaxa. ALLERGIES: No known drug allergies. PHYSICAL EXAM: VITAL SIGNS: Blood pressure 178/109, heart rate 83, respirations 62, O2 saturation 9 5% on room air, temperature is 36.9. GENERAL: Well-developed, well-nourished female who appears unc omfortable, but not in acute distress. HEENT: Normocephalic, atraumatic. Extraocular movements int act. NECK: Supple. No lymphadenopathy. Trachea midline. RESPIRATORY: No accessory respiratory mu scle use. CARDIAC: Regular rate and rhythm. No lower extremity edema. GI: Abdomen was soft, nondis tended. No hepatosplenomegaly. Mild discomfort suprapubic. : No flank tenderness on exam. Bladder pain with palpation. INTEGUMENT: No obvious rashes or lesions. NEURO: The patient is alert and orie nted. Affect appropriate to situation. MUSCULOSKELETAL: Examined while supine but moving upper extre mities without difficulty. LABS: White blood cell count 9.74, hemoglobin 12.1, hematocrit 36.1, platelets 239. Sodium 134, pot assium 4.4, chloride 102, carbon dioxide 20, anion gap 9, BUN 13, creatinine 1.1, glucose 95, calcium 9.3. Her urinalysis was positive for blood, white blood cells, no obvious nitrites. Urine culture preliminary shows [address] of the abdomen and pelvis shows multiple masses in the bladder, left moderate hydronephrosis with some perinephric stranding. ASSESSMENT AND PLAN: This lady has recurrent bladder masses in her bladder likely causing ureteral o bstruction and hydronephrosis on the left. However, her symptoms seem to be more consistent with con stipation as noted on the imaging and by her report. Our recommendation would be for an aggressive b owel regiment with discharge and follow up with her radiation oncologist for cancer planning on . I discussed this in person with the patient who agreed with this plan. Other options would be to put a percutaneous nephrostomy tube into her left kidney. However, given patient's anticoagulation there is a high potential that this may cause more bleeding and problems. At this point, Dr. Mirza flores I reviewed the case. We would be happy to tree and manage the patient here if she desires. Otherw ise, we would recommend as described above. /[id number]/MODL
--- NOTE | 2018-04-14 15:23 | ASMTCMCOM ---
CM Note CM Note Notes: Patient plan of care reviewed in interdisciplinary rounds.. 83 year old female from [place] diagnosed with bladder cancer receiving treatments at [facility] admitted via [facility] with acute abdominal pain. Patient has been on blood thinners and is experiencing ureteral obstruction. The plan is to move forward with nephrostomy tube either tomorrow or Tuesday, She has a follow up appointment with Oncology radiologist on Tuesday at the [place]. Plan: Dc to home when medically cleared. Date Signed: 04/14/2018 03:22 PM Electronically Signed By:Petty Lujan RN
--- NOTE | 2018-04-14 16:44 | HOSPPROG ---
Hospitalist Progress Note Assessment/Plan: Assessment: 81-year-old female presents with acute abdominal pain most likely secondary to a combination of obstructive uropathy as well as constipation Plan: 1. Obstructive uropathy. Acute, new problem this provider, further workup indicated. CT demonstrating hydronephrosis secondary to UVJ bladder mass and obstruction with some perinephric stranding -compared to outside records including 03/03/2018 ultrasound demonstrating mild left-sided hydronephrosis, it has advanced since that time a suspect that there is an obstructive element from her underlying malignancy -discussed with Dr. Sayra Page, she and I both agree that percutaneous nephrostomy would be a temporizing but necessary measure to relieve some of the patient's hydronephrosis as well as abdominal symptoms -the timing of this procedures based on the discontinuation of the patient's Pradaxa, with last dose 04/13 AM -we have agreed to hold the Pradaxa for 72 hr and proceed with the procedure on 04/16, with bridging Lovenox in the interim -patient's urinalysis does not appear consistent with UTI, discontinue antibiotics -continue monitor renal function, urine output, creatinine level -appreciate Urology consult 2. Hydronephrosis. Left-sided, moderate, advanced since imaging in February, most likely secondary to obstructive element outlined above 3. Bladder cancer. Chronic, patient has established care at [facility] given the complex nature of her issue and the involvement of multiple specialties including Medical Oncology, Surgical Oncology, Urology, radiation Oncology -while the patient does have follow-up care secured for this coming Tuesday, it is with Radiation Oncology, which will not be the appropriate service to be addressing the urologic issues above and my concern is that if the patient is discharged at this time with this follow-up, she will not receive the appropriate level of care to match her current medical needs, necessitating interventional care at our facility at this time -my hope is that the patient's intervention will proceed without complications on 04/16 and the patient will be able to be safely discharged later that day, so that she is able to complete her outpatient evaluations with radiation oncology on 04/17 4. Abdominal aortic aneurysm. 4.7 x 5.4, in for renal, with mural thrombus -reviewed outside records including 03/25/2018 CT angiogram of chest, there was capture of the contrast in the renal arteries but no mention of aneurysm at that time -if abdominal pain significantly increasing or patient becomes hypotensive, get stat imaging of the abdomen to ensure not secondary to an enlarging aneurysm -currently on systemic anticoagulation -goal blood pressure less than 140, treat with IV hydralazine as well as ongoing OTTONIEL-inhibitor -will require outpatient follow-up imaging but more urgent cardiothoracic surgery consultation if involving actively 5. Pulmonary embolism and DVT. Present on admission, recent diagnosis on 2017, initiated on Pradaxa at that time -holding the Pradaxa as outlined above, the patient requires active bridging therapy and will use Lovenox at this time -check creatinine level at 2:00 p.m. Today to ensure that renal function not worsening, and if so, would recommend adjusting from Lovenox to heparin drip per discussion with pharmacy 6. Constipation. Acute worsening of chronic condition, placed on bowel regiment and Mag citrate today, may be contributing to pain above Diet. Regular Prophylaxis. High risk, Lovenox 60 twice daily Code. Full Disposition. Anticipated discharge uncertain this time, anticipated length stay is through at least 04/16, pending above. Subjective: Patient with ongoing abdominal pain and nausea Objective: Vital Signs Temp Pulse Resp BP Pulse Ox 37.3 C 85 18 151/83 H 95 04/14/18 15:57 04/14/18 15:57 04/14/18 15:57 04/14/18 15:57 04/14/18 15:57 Laboratory Results 04/14/18 04:22 04/14/18 04:22 04/13/18 04/14/18 04/15/18 05:59 05:59 05:59 Intake Total 250 Output Total 225 Balance 25 - Physical Exam Constitutional: chronically ill appearing, uncomfortable, No no apparent distress (Moderate distress), No not in pain (Moderate pain) Cardiovascular: tachycardia, No systolic murmur, No irregularly irregular, No edema Respiratory: no respiratory distress, no rales or rhonchi, clear to auscultation Gastrointestinal: tenderness (Left flank), guarding (Voluntary on left), No normoactive bowel sounds (Hypoactive bowel sounds), No distension Neurologic: AAOx3 Psychiatric: not anxious, not encephalopathic, flat affect, No agitated ICD10 Worksheet Patient Problems: Problems Problem Status Onset AAA (abdominal aortic aneurysm) Acute Bladder cancer Acute Hydronephrosis Acute Obstructive uropathy Acute Pyelonephritis Acute Pulmonary embolism Acute
[2018-04-14] MEDS: SENNOSIDES/DOCUSATE SODIUM TAB PO SCH (20:46)
[2018-04-14] MEDS: HYDROmorphONE/DILAUDID 2 MG TAB PO PRN (20:47)
[2018-04-15] MEDS: hydrALAZINE 20 MG/ML VIAL IVP PRN ×2 (00:49→12:59)
[2018-04-15] MEDS: HYDROmorphone HCL 0.5 MG/0.5 ML SYR IVP PRN (01:40)
[2018-04-15 04:34] LABS: INR 1.37 (0.83-1.16)
[2018-04-15] MEDS: SENNOSIDES/DOCUSATE SODIUM TAB PO SCH ×2 (07:34→20:01)
[2018-04-15] MEDS: HYDROmorphONE/DILAUDID 2 MG TAB PO PRN ×2 (07:35→20:01)
[2018-04-15] MEDS: ENOXAPARIN 60 MG/0.6 ML SYR SC SCH ×2 (07:36→19:13)
[2018-04-15] MEDS: LISINOPRIL 20 MG TAB PO SCH (07:39)
--- NOTE | 2018-04-15 08:57 | HOSPPROG ---
Hospitalist Progress Note Assessment/Plan: 1. Obstructive uropathy. Acute. CT demonstrating hydronephrosis secondary to UVJ bladder mass and obstruction with some perinephric stranding -compared to outside records including 03/03/2018 ultrasound demonstrating mild left-sided hydronephrosis, it has advanced in size -Dr. Sayra Page to place percutaneous nephrostomy tomorrow (pradaxa held, lovenox on hold now too) -patient's urinalysis does not appear consistent with UTI but cx with > 100CFU MSSA, restart ceftriaxone -appreciate Urology consult -she has FU planned at [facility]/ oncology team on Tue (this will be her 3rd appt ) 2. Hydronephrosis. Left-sided, moderate, advanced since imaging in February 3. Bladder cancer. she is from [place] but her daughter lives here and thus she has established care at [facility] given the complex nature of her issue -strongly recommended to her and daughter to ask at [facility] for a referral to primary clinic in [place] to follow along during course of treatment 4. Abdominal aortic aneurysm. 4.7 x 5.4, in for renal, with mural thrombus -reviewed outside records including 03/25/2018 CT angiogram of chest, there was capture of the contrast in the renal arteries but no mention of aneurysm at that time -if abdominal pain significantly increasing or patient becomes hypotensive, needs stat imaging of the abdomen to ensure not secondary to an enlarging aneurysm -currently on systemic anticoagulation but holding for tomorrows procedure ( check with Dr Page re restart timing for pradaxa) -goal blood pressure less than 140, treat with IV hydralazine as well as ongoing OTTONIEL-inhibitor -will require outpatient follow-up imaging but more urgent cardiothoracic surgery consultation if enlarging 5. Pulmonary embolism and DVT. Present on admission, recent diagnosis on 2017, initiated on Pradaxa at that time -holding the Pradaxa, see above -bridging with lovenox, but this will be held today for procedure tomorrow 6. Constipation. Acute worsening of chronic condition, placed on bowel regiment , no BM yet Diet:Regular DVT prophy: chronic anticoag, as above FULL CODE PCP- in [place], but suggest establishing locally also while here for treatment Disposition: Anticipated discharge tomorrow if tolerates procedure well and labs stable post procedure (has early AM appt Mon 10/1 at [facility]) Subjective: No BM yet, but says no N/V and pain OK with meds. Dr Page came by, plan for procedure tomorrow and hopeful dc afterwards as she has an appt with [facility] on . Daughter in round for PM rounds. Objective: Vital Signs Temp Pulse Resp BP Pulse Ox 98.0 F 101 H 18 125/90 H 95 04/15/18 07:28 04/15/18 07:28 04/15/18 07:28 04/15/18 07:39 04/15/18 07:28 Laboratory Results 04/15/18 04:15 04/15/18 04:15 04/13/18 04/14/18 04/15/18 11:59 11:59 11:59 Intake Total 250 1175 Output Total 225 700 Balance 25 475 PT 17.0 SEC (12.0-15.0) H 04/15/18 04:15 INR 1.37 (0.83-1.16) H 04/15/18 04:15 - Time Spent With Patient Time Spent with Patient: greater than 35 minutes Time Spent with Patient: Greater than 35 minutes spent on this patients care, greater than 50% of time spent counseling, educating, and coordinating care regarding the above mentioned plan. - Physical Exam Constitutional: no apparent distress, not in pain Eyes: anicteric sclera Ears, Nose, Mouth, Throat: moist mucous membranes, hearing normal Cardiovascular: regular rate and rhythym, other (dynamic ) Respiratory: no respiratory distress, no rales or rhonchi Gastrointestinal: normoactive bowel sounds, soft, non-tender abdomen, distension Skin: warm, normal color Psychiatric: interacting appropriately, not anxious, not encephalopathic, thought process linear ICD10 Worksheet Patient Problems: Problems Problem Status Onset AAA (abdominal aortic aneurysm) Acute Bladder cancer Acute Hydronephrosis Acute Obstructive uropathy Acute Pyelonephritis Acute Pulmonary embolism Acute
--- NOTE | 2018-04-15 14:11 | ASMTCMCOM ---
CM Note CM Note Notes: Patient plan of care discussed with patient in interdisciplinary rounds today. Plan is for uretal stenting tomorrow. She is normally followed by [facility] for her oncology needs. She has an appointment Tuesday at 8:45 am. Hopeful to dc tomorrow afternoon home independently with daughter. Plan: As above Date Signed: 04/15/2018 02:10 PM Electronically Signed By:Petty Lujan RN
[2018-04-15] MEDS ORDERED: MAGNESIUM HYDROXIDE 30 ML UDCUP PO SCH (16:00)
[2018-04-15] MEDS: MAGNESIUM HYDROXIDE 30 ML UDCUP PO SCH (16:40)
[2018-04-16] MEDS: LISINOPRIL 20 MG TAB PO SCH (09:21)
[2018-04-16] MEDS: SENNOSIDES/DOCUSATE SODIUM TAB PO SCH (09:21)
[2018-04-16] MEDS: MAGNESIUM HYDROXIDE 30 ML UDCUP PO SCH (09:22)
[2018-04-16] MEDS: HYDROmorphONE/DILAUDID 2 MG TAB PO PRN (09:29)
[2018-04-16] MEDS ORDERED: MEPERIDINE 25 MG/ML SYR IVP PRN (10:30)
[2018-04-16] MEDS ORDERED: FLUMAZENIL 0.5 MG/5 ML MDV IVP PRN (10:30)
[2018-04-16] MEDS ORDERED: NS 1,000 ML IV SCH (10:30)
[2018-04-16] MEDS ORDERED: fentaNYL 100 MCG/2 ML INJ IVP PRN (10:30)
[2018-04-16] MEDS ORDERED: MIDAZOLAM 2 MG/2 ML VIAL IVP PRN (10:30)
[2018-04-16] MEDS ORDERED: NALOXONE HCL 0.4 MG/ML INJ IVP PRN (10:30)
--- NOTE | 2018-04-16 11:19 | PDPROPOC ---
Sedation Plan of Care Sedation Plan of Care: vital signs stable, mental status noted, patient educated of risks, benefits, alternatives, patient can tolerate sedation ASA Classification: ASA 3 Planned drugs: fentanyl, midazolam Mallampati Score: Class 2 Mallampati Reference Image: Patient passed 3-3-2 rule?: Yes
[2018-04-16] MEDS ORDERED: IOPAMIDOL (ISOVUE-300) 100 ML BTL ONE (11:48)
--- NOTE | 2018-04-16 12:22 | PDRADPN ---
Radiology Procedure Note Date of Procedure: 04/16/18 Radiologist: Sayra Page Anesthesia: IV Sedation Pre-op Diagnosis: LT hydronephrosis Post-op Diagnosis: same Indication: pain. increasing WBC Procedure: LT perc neph Finding(s): moderate hydronephrosis. Inf/Abcess present in the surg proc area at time of surgery?: No
--- NOTE | 2018-04-16 12:26 | HOSPPROG ---
Hospitalist Progress Note Assessment/Plan: 1. Obstructive uropathy. Acute. CT demonstrating hydronephrosis secondary to UVJ bladder mass and obstruction with some perinephric stranding -compared to outside records including 03/03/2018 ultrasound demonstrating mild left-sided hydronephrosis, it has advanced in size -Dr. Sayra Page to place percutaneous nephrostomy today (pradaxa held, lovenox on hold now too) -patient's urinalysis does not appear consistent with UTI but cx with > 100CFU MSSA, restarted ceftriaxone yesterday -appreciate Urology consult -she has FU planned at [facility]/ oncology team on Tue (this will be her 3rd appt ) 2. Hydronephrosis. Left-sided, moderate, advanced since imaging in February 3. Bladder cancer. she is from [place] but her daughter lives here and thus she has established care at [facility] given the complex nature of her issue -strongly recommended to her and daughter to ask at [facility] for a referral to primary clinic in [place] to follow along during course of treatment 4. Abdominal aortic aneurysm. 4.7 x 5.4, in for renal, with mural thrombus -outside records including 03/25/2018 CT angiogram of chest, there was capture of the contrast in the renal arteries but no mention of aneurysm at that time -if abdominal pain significantly increasing or patient becomes hypotensive, needs stat imaging of the abdomen to ensure not secondary to an enlarging aneurysm -currently on systemic anticoagulation but holding for procedure (per Dr Page restart pradaxa after procedure OK) -goal blood pressure less than 140, treat with IV hydralazine as well as ongoing OTTONIEL-inhibitor -will require outpatient follow-up imaging but more urgent cardiothoracic surgery consultation if enlarging 5. Pulmonary embolism and DVT. Present on admission, recent diagnosis on 2017, initiated on Pradaxa at that time -holding the Pradaxa, see above -bridging with lovenox, but this is holding now for procedure also 6. Constipation. Acute worsening of chronic condition, placed on bowel regiment , no BM yet Diet:Regular DVT prophy: chronic anticoag, as above FULL CODE PCP- in [place], but suggest establishing locally also while here for treatment Disposition: Anticipated discharge tonight if tolerates procedure well (has early AM appt Mon 04/17 at [facility]) Subjective: Ready for procedure, still no BM. Eager to go home so she can make [facility] appt tomorrow. N/V 1x with bowel meds. NPO now for procedure. Says pain ok with meds, no SOB/CP. Objective: Vital Signs Temp Pulse Resp BP Pulse Ox 98.3 F 87 19 132/82 H 100 04/16/18 08:00 04/16/18 11:29 04/16/18 11:29 04/16/18 11:29 04/16/18 11:29 Laboratory Results 04/15/18 04:15 04/15/18 04:15 04/15/18 04/16/18 04/17/18 11:59 11:59 11:59 Intake Total 1175 200 300 Output Total 700 500 0 Balance 475 -300 300 PT 17.0 SEC (12.0-15.0) H 04/15/18 04:15 INR 1.37 (0.83-1.16) H 04/15/18 04:15 - Physical Exam Constitutional: no apparent distress, not in pain Ears, Nose, Mouth, Throat: moist mucous membranes, hearing normal Cardiovascular: regular rate and rhythym, other (hyperdynamic precordium) Respiratory: no respiratory distress, no rales or rhonchi, clear to auscultation Gastrointestinal: normoactive bowel sounds, tenderness (LUQ) Psychiatric: interacting appropriately, not anxious, not encephalopathic, thought process linear ICD10 Worksheet Patient Problems: Problems Problem Status Onset AAA (abdominal aortic aneurysm) Acute Bladder cancer Acute Hydronephrosis Acute Obstructive uropathy Acute Pulmonary embolism Acute Pyelonephritis Acute
[2018-04-16 16:17] VITALS: BP 121/73
--- NOTE | 2018-04-17 11:33 | GDS ---
SERVICE: [facility] hospitalist. CONSULTS: Urology, Dr. Ari Blue. Interventional Radiology, Dr. Sayra Page. PROCEDURES: 1. Abdominal CT showing moderate left-sided hydronephrosis and hydroureter going down to the left side of the bladder. Wall thickening of 1.5 cm suggesting bladder cancer. Perinephric inflammation around the renal hilum. Infrarenal abdominal aortic aneurysm 4.7 x 5.4 cm with a moderate amount of mural thrombus. Constipation. 2. Abdominal x-ray done on the day of discharge showed moderate constipation 3. post left-sided percutaneous nephrostomy catheter placement 04/16/2018, no noted complications. H AND P: Please see previously dictated note by Dr. Heredia. ADMISSION DIAGNOSES: 1. Hydroureter nephrosis secondary to bladder mass compression. 2. Pyelonephritis. 3. Bladder cancer. 4. Abdominal aortic aneurysm. 5. Pulmonary embolism, previously diagnosed. 6. Hypertension. DISCHARGE DIAGNOSES: 1. 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 Pyelonephritis. 3. Bladder cancer. 4. Abdominal aortic aneurysm. 5. Pulmonary embolism, previously diagnosed. 6. Hypertension. 7. Constipation. HOSPITAL COURSE: The patient lives in [place], but she has been in [place] staying with her daughter and seeking care at the [facility] for bladder cancer. She came into the emergency department on the because of left-sided pain and dizziness. She was noted to have a significant hydronephrosis and was admitted to the hospital for treatment and pain management. Urology, Dr. Blue, was asked to consult on the patient, please see his consultation dictation for further details. Interventional Radiology, Dr. Sayra Page was also asked to consult on the patient, and recommended a percutaneous nephrostomy tube. As she was on chronic anticoagulation for previously diagnosed PE, Pradaxa was held and she was given bridging Lovenox until the day prior to her procedure. She had a procedure on the day of discharge with good return of urine, minimal postoperative pain, and was very eager to be discharged home so that she could see [facility] oncology service early the next day for ongoing evaluation and decision about what treatment strategy to pursue. She did not have any further episodes of dizziness throughout her stay. She likely had volume depletion at arrival and was given IV fluids. She also has mild anemia with a hemoglobin of 11 to 12. When she was able to hydrate well orally, IVF was discontinued. She did not have a bowel movement throughout her stay, and she did not have any indication of a bowel obstruction. She was given bowel protocol medications, but did not proceed to enema as again she wanted to discharge home since she could follow up the next day with [facility]. Instructed her and her daughter to consider doing an enema at home or to discuss other options at her oncology followup appointment. Initial urinalysis had red blood cells and white blood cells, so she was started on Rocephin at admission. Subsequent urine culture returned with Staph epi greater than 100,000, and blood cultures negative. Rocephin was discontinued after these results were received. However, I restarted Rocephin at the request of Dr. Page for coverage during her nephrostomy procedure. Of note, this Staph epi that grew out of the culture was not sensitive to cephalosporins, so no further antibiotics have been given at discharge as she did not have any symptoms of infection. I did order a urine culture to be taken from her nephrostomy site and this is pending at time of discharge. Will need followup of this culture to determine if further antibiotics are indicated at this time. DISCHARGE MEDICATIONS: No change to her chronic home medications was done, and she was instructed to restart Pradaxa tomorrow morning (OK per Dr Page). Was given a prescription for hydromorphone and Zofran to use as needed for symptoms , and also for senna to continue bowel regimen as above. They can purchase an enema over the counter to use if needed. DISCHARGE INSTRUCTIONS: She will be following up with the [facility] tomorrow. She does not have any local primary care as she is from [place]. I have strongly recommended to her and her daughter that she establish with a primary care in the area, perhaps with [facility] to aid in coordination of care. They will consider this. RN was instructing the patient's daughter on how to care for the nephrostomy bag. Copy requested to: Oncology Dept [facility] /[id number]/MODL [id number]
== END 2018-04-16 18:42 | disposition home or self-care (01) | DRG 687 ==
LOC: F1N 20:54
PROVIDERS: ADMIT Internal Medicine; ATTEND Internal Medicine
PROC: 0T9130Z Drainage of Left Kidney with Drainage Device, Percutaneous Approach (ICD-10-PCS; principal; 2018-04-16 12:40)
DX: C67.9 Malignant neoplasm of bladder, unspecified (principal); N13.39 Other hydronephrosis; N12 Tubulo-interstitial nephritis, not specified as acute or chronic; I71.4 Abdominal aortic aneurysm, without rupture; I10 Essential (primary) hypertension; K59.00 Constipation, unspecified; D64.9 Anemia, unspecified; G47.33 Obstructive sleep apnea (adult) (pediatric); Z86.711 Personal history of pulmonary embolism; Z86.718 Personal history of other venous thrombosis and embolism; Z79.01 Long term (current) use of anticoagulants
CPT/HCPCS: 97165-GO; 97535-GO; C1729; C1769; G8987-GO-CJ; G8988-GO-CI; J0360; J0696; J1170; J1644; J1650; J2250; J2270; J2405; J3010; Q9967